=== PATIENT | male | born 1960 | race Two or more races ===

== ENCOUNTER 2016-02-12 18:55 | Inpatient (IN) | payer MEDICARE, OTHER ==
[2016-02-12] MEDS ORDERED: INSULIN REGULAR HUMAN 100 UNIT/1 ML 10 ML MDV IVP STA ×2 (19:48→20:37)
[2016-02-12] MEDS ORDERED: SODIUM CHLORIDE 0.9% 1,000 ML IV ONE (19:48)
[2016-02-12] MEDS ORDERED: INSULIN REGULAR HUMAN 100 UNIT/1 ML 10 ML MDV ONE ×2 (19:55→20:40)
[2016-02-12] MEDS ORDERED: MAGNESIUM SULFATE 2 GRAM 50 ML IV ONE ×2 (20:18→20:30)
[2016-02-12] MEDS ORDERED: ONDANSETRON ODT 4 MG TABLET TL PRN (23:08)
[2016-02-12] MEDS ORDERED: HYDROcod/ACETAM 5/325 MG TABLET PO PRN (23:08)
[2016-02-12] MEDS ORDERED: HYDROmorphone 1 MG/ML SYRINGE IVP PRN (23:08)
[2016-02-12] MEDS ORDERED: ONDANSETRON 4 MG/2 ML VIAL IVP PRN (23:08)
[2016-02-12] MEDS ORDERED: ACETAMINOPHEN 325 MG TABLET PO PRN (23:08)
[2016-02-12] MEDS ORDERED: SODIUM CHLORIDE FLUSH 0.9% 10 ML SYRINGE IVP PRN (23:08)
[2016-02-12] MEDS ORDERED: SODIUM CHLORIDE 0.9% 1,000 ML IV SCH (23:08)
[2016-02-12] MEDS ORDERED: PROCHLORPERAZINE 10 MG/2 ML VIAL IVP PRN (23:08)
[2016-02-13] MEDS ORDERED: INSULIN REGULAR HUMAN 100 UNIT/1 ML 10 ML MDV SUBQ SCH
[2016-02-13] MEDS: SODIUM CHLORIDE FLUSH 0.9% 10 ML SYRINGE IVP SCH ×4 (00:48→21:23)
[2016-02-13] MEDS ORDERED: POTASSIUM CHLORIDE 20 MEQ TABLET PO SCH (00:56)
[2016-02-13] MEDS ORDERED: POTASSIUM CHLORIDE INJ 40 MEQ in SODIUM CHLORIDE 0.9% 1,000 ML IV SCH (01:00)
[2016-02-13] MEDS ORDERED: INSULIN ASPART 300 UNIT/3 ML PEN SUBQ SCH (02:00)
[2016-02-13] MEDS: NS W/20 MEQ KCL 1,000 ML IV SCH ×2 (02:33→10:56)
[2016-02-13] MEDS ORDERED: DEXTROSE 5% 1,000 ML IV PRN (02:46)
[2016-02-13] MEDS ORDERED: GLUCAGON 1 MG/ML VIAL SUBQ PRN (02:46)
[2016-02-13] MEDS ORDERED: DEXTROSE GEL 37.5 GM TUBE PO PRN (02:46)
[2016-02-13] MEDS ORDERED: DEXTROSE 50% ABBOJECT 25 GM/50 ML SYRINGE IVP PRN (02:46)
[2016-02-13] MEDS: PANTOPRAZOLE 40 MG TABLET PO SCH (06:11)
[2016-02-13] MEDS ORDERED: MAGNESIUM SULFATE 2 GRAM 50 ML IV ONE (08:33)
[2016-02-13] MEDS: INSULIN ASPART 300 UNIT/3 ML PEN SUBQ SCH ×6 (08:59→21:22)
[2016-02-13] MEDS: ENOXAPARIN 40 MG/0.4 ML SYRINGE SUBQ SCH (09:50)
[2016-02-13] MEDS: metFORMIN 500 MG TABLET PO SCH (17:09)
[2016-02-13] MEDS ORDERED: INSULIN GLARGINE 300 UNIT/3 ML PEN SUBQ SCH ×2 (21:00)
[2016-02-13] MEDS ORDERED: SODIUM CHLORIDE 0.9% 1,000 ML IV SCH (23:00)
[2016-02-14] MEDS ORDERED: DEXTROSE 5%-0.45% NACL 1,000 ML IV SCH
[2016-02-14] MEDS: PANTOPRAZOLE 40 MG TABLET PO SCH (06:12)
[2016-02-14] MEDS: SODIUM CHLORIDE FLUSH 0.9% 10 ML SYRINGE IVP SCH (06:13)
[2016-02-14] MEDS ORDERED: DEXTROSE GEL 37.5 GM TUBE PO PRN (07:42)
[2016-02-14] MEDS ORDERED: GLUCAGON 1 MG/ML VIAL SUBQ PRN (07:42)
[2016-02-14] MEDS ORDERED: DEXTROSE 5% 1,000 ML IV PRN (07:42)
[2016-02-14] MEDS ORDERED: DEXTROSE 50% ABBOJECT 25 GM/50 ML SYRINGE IVP PRN (07:42)
[2016-02-14] MEDS ORDERED: POTASSIUM CHLORIDE 20 MEQ TABLET PO SCH (08:00)
[2016-02-14] MEDS: INSULIN ASPART 300 UNIT/3 ML PEN SUBQ SCH ×4 (08:05→11:48)
[2016-02-14] MEDS: ENOXAPARIN 40 MG/0.4 ML SYRINGE SUBQ SCH (09:21)
[2016-02-14] MEDS: metFORMIN 500 MG TABLET PO SCH (09:21)
== END 2016-02-14 12:27 | disposition home or self-care (01) | DRG 637 ==
DX: E11.65 Type 2 diabetes mellitus with hyperglycemia (principal); E13.10 Other specified diabetes mellitus with ketoacidosis without coma; E78.00 Pure hypercholesterolemia, unspecified; G93.41 Metabolic encephalopathy; E87.1 Hypo-osmolality and hyponatremia; E87.6 Hypokalemia; E86.0 Dehydration; K21.9 Gastro-esophageal reflux disease without esophagitis; K70.30 Alcoholic cirrhosis of liver without ascites; I10 Essential (primary) hypertension; E78.5 Hyperlipidemia, unspecified; Z79.4 Long term (current) use of insulin; Z87.891 Personal history of nicotine dependence; Z85.21 Personal history of malignant neoplasm of larynx; Z85.89 Personal history of malignant neoplasm of other organs and systems; Z87.898 Personal history of other specified conditions